=== PATIENT | female | born 1990 | race Caucasian/White ===

== ENCOUNTER 2022-09-21 17:46 | Emergency (ER) | payer MEDICAID, SELFPAY ==
[2022-09-21] VITALS (17 sets, daily range): BP systolic 99–119; BP diastolic 62–75; PULSE 62–86; RESP 18; TEMP 36.9; O2SAT 95–100; BMI 20.8
--- NOTE | 2022-09-21 18:03 | ED.GENADULT ---
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 According to the patient yesterday she had 2 episodes of vomiting which is unusual for her. Since this morning she has been having episodes of pain. She gets very severe stabbing epigastric pain that comes and goes in severe waves. Each weight seems to be more intense and severe than the 1 for CD. No clear exacerbating or alleviating factors. It does not really matter if she eats or drinks or does not change with position. The pain does not radiate to the right upper quadrant or left. No migratory pain downward toward the right lower quadrant. No fever or chills. She has been nauseous but not vomiting today. Bowel movements's been normal. Urination has been normal. She does not think she is . Urgent care med upon call and ask to send her here for evaluation. They were concerned about a volvulus and a bowel obstruction based the provider's reading on the plain film. Data From Urgent Care: WBC: 12.8, HGB 14.3, PLT 233 X-ray/of the abdominal flap and upright abdomen x-ray Findings: Bowel: Nondilated bowel gas pattern. The amount of colonic stool is within normal limits. Other: No sign of free air. No sign of soft tissue mass. No suspicious calcifications. Osseous structures are unremarkable for age. Right paramedian pelvic T-shaped IUD. The pelvic oval calcification since this is the likely to represent phlebolith. Impression: No radiographic findings to explain the clinical history Patient was transferred by EMS. She has an IV in place. She was having a lot of pain. She received a total of 2 mg of Dilaudid EN route. She has had Zofran 4 mg. Benadryl 25 mg. Related Data Home Medications Medication Instructions Recorded Confirmed albuterol sulfate 90 mcg/actuation 2 puff inhalation Q4-6H PRN 09/21/22 09/21/22 aerosol inhaler Previous Rx's Medication Instructions Recorded omeprazole 40 mg capsule,delayed 40 mg PO DAILY #30 caps 09/21/22 release polyethylene glycol 3350 17 17 g PO DAILY #119 grams 09/21/22 gram/dose oral powder (Miralax) Allergies Allergy/AdvReac Type Severity Reaction Status Date / Time naproxen Allergy Unknown Rash Verified 09/21/22 17:48 Review of Systems Narrative: negative [facility] Medical History Nausea ?R11.0 - Nausea (ICD-10) Social History Smoking Status: Current every day smoker What tobacco products do you use: cigarettes Smoking packs per day: 0.5 Smoking cigarettes per day: 10.0 How often do you have a drink containing alcohol: 2-4 times a month How often do you have six or more drinks on one occasion: Never AUDIT-C Alcohol total score: 2 Non-prescribed substance use: marijuana (any form) service: No Exam Narrative: Exam Narrative: Constitutional: Appears well-developed and well-nourished. Alert. Conversant. Non toxic. HENT: Head: Atraumatic. Nose: Nose normal. Mouth/Throat: Oral mucosa is clear and moist. no trismus. Pharynx normal. Tonsils symmetric. No tonsillar enlargement, erythema, or exudate. Eyes: Conjunctivae normal. EOM normal. Pupils equal, round, and reactive to light. No scleral icterus. Neck: Normal range of motion. Neck supple. No tracheal deviation present. Cardiovascular: Normal rate, regular rhythm. No gallop. No friction rub. No murmur heard. Symmetric radial artery pulses Pulmonary/Chest: Effort normal. No stridor. No respiratory distress. No wheezes. No rales. No rhonchi . No tenderness. Abdominal: Soft. Bowel sounds normal. mild distension. +tympanic, marked epigastric > LUQ>RUQ>lower abd tendernesss. No mass. No CVA tenderness. No rebound. No guarding. Musculoskeletal: RUE: Normal range of motion. No tenderness. No deformity LUE: Normal range of motion. No tenderness. No deformity RLE: Normal range of motion. No edema. No tenderness. No deformity LLE: Normal range of motion. No edema. No tenderness. No deformity Neurological: Alert and oriented to person, place, and time. Normal strength. CN II-VII intact. No sensory deficit. GCS eye subscore is 4. GCS verbal subscore is 5. GCS motor subscore is 6. Normal coordination Skin: Skin is warm and dry. No rash noted. No pallor. Normal capillary refill. Psychiatric: Normal mood. Normal affect. Const: Vital Signs, click to edit/add: Vital Signs - 24 hr 09/21/22 17:48 09/21/22 19:06 09/21/22 19:15 Temperature 98.5 F Pulse Rate 86 73 Pulse Rate [Right Pulse Oximeter] 80 Respiratory Rate 18 Blood Pressure Blood Pressure [Ri ght Upper Arm] 119/75 Pulse Oximetry 98 100 98 Oxygen Delivery Me thod Room Air 09/21/22 19:30 09/21/22 19:45 09/21/22 20:00 Temperature Pulse Rate 76 80 74 Pulse Rate [Right Pulse Oximeter] Respiratory Rate Blood Pressure Blood Pressure [Ri ght Upper Arm] Pulse Oximetry 98 97 98 Oxygen Delivery Me thod 09/21/22 20:05 09/21/22 20:06 09/21/22 20:18 Temperature Pulse Rate 76 84 Pulse Rate [Right Pulse Oximeter] 79 Respiratory Rate 18 Blood Pressure 100/62 Blood Pressure [Ri ght Upper Arm] 100/62 Pulse Oximetry 98 95 98 [facility] 09/21/22 20:30 09/21/22 20:34 09/21/22 20:35 Temperature Pulse Rate 62 68 72 Pulse Rate [Right Pulse Oximeter] Respiratory Rate Blood Pressure Blood Pressure [Ri ght Upper Arm] Pulse Oximetry 96 96 95 Oxygen Delivery Me thod 09/21/22 20:45 09/21/22 21:01 09/21/22 21:02 Temperature Pulse Rate 62 72 77 Pulse Rate [Right Pulse Oximeter] Respiratory Rate Blood Pressure 99/65 Blood Pressure [Ri ght Upper Arm] Pulse Oximetry 97 97 97 Oxygen Delivery Mn thod 09/21/22 21:15 09/21/22 21:31 Temperature Pulse Rate 70 Pulse Rate [Right Pulse Oximeter] Respiratory Rate Blood Pressure 101/70 Blood Pressure [Ri ght Upper Arm] Pulse Oximetry 97 Oxygen Delivery Me thod Course Vital Signs Vital signs: Initial Vital Signs Temperature 98.5 F 09/21/22 17:48 Temperature Source Temporal Artery Scan 09/21/22 17:48 Pulse Rate 80 09/21/22 17:48 Pulse Rhythm Regular 09/21/22 17:48 Pulse Strength 3+ Normal 09/21/22 17:48 Respiratory Rate 18 09/21/22 17:48 Blood Pressure 119/75 09/21/22 17:48 Blood Pressure Mean 89 09/21/22 17:48 Blood Pressure Position Sitting 09/21/22 17:48 Pulse Oximetry 98 09/21/22 17:48 Oxygen Delivery Method Room Air 09/21/22 17:48 Vital Signs Temperature 98.5 F 09/21/22 17:48 Pulse Rate 80 09/21/22 17:48 Respiratory Rate 18 09/21/22 17:48 Blood Pressure 119/75 09/21/22 17:48 Pulse Oximetry 98 09/21/22 17:48 Oxygen Delivery Method Room Air 09/21/22 17:48 Temperature 98.5 F 09/21/22 17:48 Pulse Rate 70 09/21/22 21:15 Respiratory Rate 18 09/21/22 20:05 Blood Pressure 101/70 09/21/22 21:31 Pulse Oximetry 97 09/21/22 21:15 Oxygen Delivery Method Room Air 09/21/22 20:05 Medical Decision Making MDM Narrative Medical decision making narrative: Presented to the Emergency Department with epigastric abdominal pain. The differential diagnosis of abdominal pain includes: Appendicitis, volvulus, Bowel Obstruction, Ulcer, Ischemia, Cholecystitis, Diverticulitis, Pancreatitis, UTI, kidney stone, Enteritis/Colitis, amongst many other etiologies. Laboratory testing does not reveal a cause for the patient's pain. CT Imaging is noted to be normal. The exact etiology of the abdominal pain is not clear at this time. No life threatening cause or need for emergent surgery or hospital admission is detected today. CT scan does suggest possible stool burden. Constipation potentially could be a cause for the patient's pain, but is not a definitive explanation. Try a course of MiraLax for that. With epigastric pain could also consider peptic ulcer disease. No evidence for GI bleeding. No peripheral sore on CT. Ultram. Prilosec. Patient may need outpatient endoscopy. The patient was advised that if symptoms do not completely resolve within another 12-24 hours re-evaluation with primary care or return to the ED is indicated. The patient also understands that if they worsen, they should return to the ER right away. I discussed the uncertainty about the diagnosis and answered the patient's questions. Abdominal pain return precautions discussed with patient and her family Lab Data Labs: Lab Results 09/21/22 09/21/22 Range/Units 18:10 18:30 Sodium 137 (135-149) mmol/L Potassium 4.0 (3.6-5.1) mmol/L Chloride 104 (96-114) mmol/L Carbon Dioxide 25 (20-32) mmol/L BUN 11 (5-24) mg/dL Creatinine 0.6 (0.5-1.5) mg/dL Estimated Creat Clear 120.49 Estimated GFR 122 ml/min Glucose 92 (60-115) mg/dL Lactate 0.5 (0.5-1.9) mmol/L Calcium 8.7 (8.4-10.6) mg/dL Total Bilirubin 0.3 (0.1-1.5) mg/dL AST 21 (12-35) U/L ALT 14 (4-35) U/L Alkaline Phosphatase 74 (40-150) U/L Total Protein 7.2 (6.0-8.3) g/dL Albumin 4.3 (3.3-5.0) g/dL Lipase 39 (23-300) U/L Urine Color Yellow (Yellow) Urine Appearance Clear (Clear) Urine pH 7.5 (5.0-8.5) Ur Specific [place] 1.015 (1.000-1.030) Urine Protein Negative (Negative) Urine Glucose (UA) Negative (Negative) Urine Ketones Negative (Negative) Urine Blood Negative (Negative) Urine Nitrite Negative (Negative) Urine Bilirubin Negative (Negative) Urine Urobilinogen 0.2 (0.2-1.0) Ur Leukocyte Esterase Negative (Negative) Urine RBC 0-2 (0-2) Urine WBC 0-2 (0-5) Ur Squamous Epith Cells Few (None-Few) Urine Bacteria None (None) Urine HCG, Qual Negative (Negative) Imaging Data CT scan - abdomen: Attestation: I have reviewed the pertinent imaging results. Radiologist's impression: MPRESSION: No acute intra-abdominal/pelvic abnormality. Moderate colonic stool burden. Please note that all CT scans at this facility use dose modulation, iterative reconstruction, and/or weight-based dosing when appropriate to reduce radiation dose to as low as reasonably achievable. ECG Data Attestation: I personally reviewed and interpreted this ECG as follows: Interpretation: Normal sinus rhythm rate 68. Sinus arrhythmia FL 150 QRS axis normal. No pathologic Q-waves. ST segment/T wave: No acute ST segment elevation or depression. QTc: 446 Discharge Plan Discharge Clinical Impression: Epigastric abdominal pain, Constipation Patient Disposition: Home, Self-Care Condition: Stable Instructions: Acute Abdominal Pain (DC) Additional Instructions: As we discussed, the cause of your pain is not certain based on her workup so far. We do not see any sign of any serious problems that need surgery right now. You may be constipated. Please take the stool softener beginning tomorrow morning. Once her having regular bowel movements he can stop the stool softener. If her pain is not resolved within 12-24 hours, come back to the ER to be rechecked. It is possible that your pain is related to ulcers or acid acosta in your stomach ( these cannot be seen on a CT scan). Please start on the stomach acid medicine (omeprazole). You may need to follow up with your regular doctor . Please follow-up with the GI specialist, such as [facility] at to schedule an appointment for an endoscopy if your pain is not getting better. y Prescriptions: New polyethylene glycol 3350 [Miralax] 17 gram/dose powder 17 g PO DAILY Qty: 119 0RF omeprazole 40 mg capsule,delayed release(DR/EC) 40 mg PO DAILY Qty: 30 0RF No Action albuterol sulfate 90 mcg/actuation HFA aerosol inhaler 2 puff inhalation Q4-6H PRN Follow Up/Referrals: Provider,Not a Local [Primary Care Provider] - Stand Alone Forms: [employer] Info Instructions
--- NOTE | 2022-09-21 18:09 | CRLHL7_ITS ---
For Patients: As a result of the Century Cures Act, medical imaging exams and procedure reports are released immediately into your electronic medical record. You may view this report before your referring provider. If you have questions, please contact your health care provider. INDICATION: Epigastric pain. TECHNIQUE: CT abdomen and pelvis acquired with 62 cc Isovue 370 IV contrast. COMPARISON: None. FINDINGS: Lower chest: Unremarkable. Liver: Unremarkable. Normal in size and attenuation. No suspicious masses. Gallbladder and bile ducts: Unremarkable. No stones or inflammation. No biliary dilatation. Pancreas: Unremarkable. No mass or inflammation. Spleen: Unremarkable. Normal in size. No masses. Adrenal glands: Unremarkable. No nodules. Kidneys: Unremarkable. No suspicious masses, stones, or hydronephrosis. GI tract: Moderate colonic stool burden. Normal in caliber. No sign of mass or inflammation. Appendix not definitely seen, however no right lower quadrant inflammatory stranding. Vasculature: Abdominal aorta is normal in caliber. Mesenteric arteries are patent. Lymph nodes: No lymphadenopathy. Peritoneum/Abdominal Wall: Unremarkable. No sign of mass or infiltration. No free air or significant free fluid. Pelvis: Intrauterine device. Tiny left corpus luteal cyst. Bones: Unremarkable for age. IMPRESSION: No acute intra-abdominal/pelvic abnormality. Moderate colonic stool burden. Please note that all CT scans at this facility use dose modulation, iterative reconstruction, and/or weight-based dosing when appropriate to reduce radiation dose to as low as reasonably achievable. Dictated by Gunner Malloy MD @ 09/21/2022 7:42:33 PM (Electronically Signed)
[2022-09-21 18:34] LABS: Appearance Urine Clear (Clear); Bilirubin Urine Negative (Negative); Blood Urine Negative (Negative); Color Urine Yellow (Yellow); Glucose Urine Negative (Negative); Ketones Urine Negative (Negative); Leukocyte Esterase Urine Negative (Negative); Nitrite Urine Negative (Negative); Protein Urine Negative (Negative); Specific Gravity Urine 1.015 (1.000-1.030); Urobilinogen Urine 0.2 (0.2-1.0); pH Urine 7.5 (5.0-8.5)
[2022-09-21 18:37] LABS: Ur HCG Qualitative* Negative (Negative)
[2022-09-21] MEDS: HYDROmorphone 0.5 mg/0.5 ml inj IVP ×2 (18:40→20:01)
[2022-09-21 18:42] LABS: RBC Urine 0-2 (0-2); Squamous Epithelial Cell Urine Few (None-Few); WBC Urine 0-2 (0-5)
[2022-09-21 18:50] LABS: Lactate* 0.5 mmol/L (0.5-1.9)
[2022-09-21 19:07] LABS: Albumin* 4.3 g/dL (3.3-5.0); Chloride* 104 mmol/L (96-114); Sodium* 137 mmol/L (135-149)
[2022-09-21 19:09] LABS: Creatinine* 0.6 mg/dL (0.5-1.5); Est. Creatinine Clearance* 120.49; Estimated Glomerular Filt Rate 122 ml/min
[2022-09-21 19:10] LABS: Alanine Aminotransferase* 14 U/L (4-35); Alkaline Phosphatase* 74 U/L (40-150); Aspartate Amino Transferase* 21 U/L (12-35); Bilirubin Total* 0.3 mg/dL (0.1-1.5); Blood Urea Nitrogen* 11 mg/dL (5-24); Calcium* 8.7 mg/dL (8.4-10.6); Carbon Dioxide* 25 mmol/L (20-32); Glucose* 92 mg/dL (60-115); Lipase* 39 U/L (23-300); Total Protein* 7.2 g/dL (6.0-8.3)
--- NOTE | 2022-09-21 19:33 | ED.NURSE ---
pt report given off to next oncoming nurse.
== END 2022-09-21 22:25 | disposition home or self-care (01) ==
PROVIDERS: Emergency Provider Emergency Medicine
DX: K59.00 Constipation, unspecified (principal); R10.13 Epigastric pain
CPT/HCPCS: 36415; 74177; 80053; 81001; 81025; 83605; 83690; 93005; 99283; 99284; J1170; Q9967

== ENCOUNTER 2023-02-03 18:25 | Emergency (ER) | payer MEDICAID, SELFPAY ==
[2023-02-03 18:43] VITALS: BP 108/75; PULSE 97; RESP 20; TEMP 37.6; O2SAT 97; BMI 20.1
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
[2023-02-03 20:00] LABS: Basophils Absolute Auto 0.06 K/uL (0.00-0.30); Basophils Percent Auto 0.8 % (0.0-3.0); Eosinophils Absolute Auto 0.34 K/uL (0.00-0.50); Eosinophils Percent Auto 4.4 % (0.0-7.0); Hematocrit 41.1 % (33.0-51.0); Hemoglobin* 14.1 gm/dL (12.0-16.0); Lymphocytes Absolute Auto 2.86 K/uL (0.90-2.90); Lymphocytes Percent Auto 37.1 % (20-44); Mean Corpuscular HGB Conc 34 gm/dL (32-36); Mean Corpuscular Hemoglobin 32 pg (26-34); Mean Corpuscular Volume 92 fL (80-100); Monocytes Percent Auto 7.7 % (0.0-11.0); Neutrophils Absolute Auto 3.85 K/uL (1.7-7.0); Platelet Count* 198 K/uL (140-440); Red Blood Count 4.45 m/uL (4.00-5.20)
[2023-02-03 20:04] LABS: Slide Review Reflex No
[2023-02-03 20:05] LABS: Chloride* 109 mmol/L (96-114)
[2023-02-03 20:06] LABS: Potassium* 3.8 mmol/L (3.6-5.1); Sodium* 139 mmol/L (135-149)
[2023-02-03 20:08] LABS: Anion Gap 8 mEq/L (7-15); Carbon Dioxide* 22 mmol/L (20-32); Creatinine* 0.6 mg/dL (0.5-1.5); Est. Creatinine Clearance* 106.03; Estimated Glomerular Filt Rate 122 ml/min
[2023-02-03 20:09] LABS: Blood Urea Nitrogen* 10 mg/dL (5-24); Calcium* 9.3 mg/dL (8.4-10.6); Glucose* 91 mg/dL (60-115)
--- NOTE | 2023-02-03 20:10 | CRLHL7_ITS ---
For Patients: As a result of the Century Cures Act, medical imaging exams and procedure reports are released immediately into your electronic medical record. You may view this report before your referring provider. If you have questions, please contact your health care provider. INDICATION: Chest pain. TECHNIQUE: Chest 2 views. COMPARISON: 10/27/2014. FINDINGS: Cardiovascular and mediastinum: Heart size and vasculature are normal in caliber and appearance. Lungs and pleural spaces: Lungs are clear. No sign of infiltrate or mass. No sign of pleural effusion. No pneumothorax. Bones and soft tissues: No significant findings. IMPRESSION: No acute cardiopulmonary abnormality. Dictated by David Bradford MD @ 02/03/2023 10:20:40 PM (Electronically Signed)
[2023-02-03] MEDS: LORazepam 0.5 MG TABLET PO (20:53)
[2023-02-03] MEDS: KETOROLAC 10 MG TABLET PO (20:53)
== END 2023-02-03 21:09 | disposition home or self-care (01) ==
PROVIDERS: Emergency Provider Emergency Medicine Emergency Medical Services
DX: R07.9 Chest pain, unspecified (principal); F41.9 Anxiety disorder, unspecified
CPT/HCPCS: 36415; 71046; 76604; 76705; 80048; 84484; 85025; 93005; 93308; 99284; 99285; A9270

== ENCOUNTER 2023-07-16 15:13 | Emergency (ER) | payer OTHER, SELFPAY ==
[2023-07-16 15:20] VITALS: PULSE 86
[2023-07-16 15:31] VITALS: BP 115/92; PULSE 108; RESP 18; TEMP 37.2; O2SAT 98; BMI 19.8
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
[2023-07-16 16:29] VITALS: BP 109/77; PULSE 86; RESP 18; O2SAT 99
== END 2023-07-16 16:34 | disposition home or self-care (01) ==
PROVIDERS: Emergency Provider Family Medicine
DX: T14.8XXA Other injury of unspecified body region, initial encounter (principal); B96.89 Other specified bacterial agents as the cause of diseases classified elsewhere; Y04.1XXA Assault by human bite, initial encounter
CPT/HCPCS: 99283; 99284

== ENCOUNTER 2024-01-10 15:44 | Emergency (ER) | payer OTHER, SELFPAY ==
[2024-01-10 15:47] VITALS: BP 131/79; PULSE 80; RESP 18; TEMP 37.1; O2SAT 99; BMI 20.1
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
--- NOTE | 2024-01-10 16:33 | ED.NURSE ---
Patient presented to ER with an animal bite to R hand. Area was cleansed with sterile water and wound acid tank cleaner. Bandaged with Bacitracin, Telfa, and light gauze wrap. Per provider order a wrist splint with Spica was placed with the patient participating for educational purposes. Patient understood how to operate and secure and loosen device. R thumb was numb prior to and following wrist brace placement. Advised patient to obtain [facility] rx from [facility], patient stated understanding.
== END 2024-01-10 16:36 | disposition home or self-care (01) ==
LOC: ED 16:36
PROVIDERS: Emergency Provider Emergency Medicine
DX: S61.431A Puncture wound without foreign body of right hand, initial encounter (principal); W54.0XXA Bitten by dog, initial encounter
CPT/HCPCS: 29125; 99283; 99284

== ENCOUNTER 2025-01-08 19:07 | Outpatient (CLI) | payer OTHER, SELFPAY ==
[2025-01-08 23:26] LABS: Chlamydia DNA Amplified* NOT DETECTED (No Detected); GC DNA Amplified* NOT DETECTED (No Detected)
== END 2025-01-08 19:08 | disposition home or self-care (01) ==
LOC: LKVREF 19:07
DX: N89.8 Other specified noninflammatory disorders of vagina (principal)
CPT/HCPCS: 87086; 87491; 87591